=== PATIENT | male | born 1985 | race Two or more races ===

== ENCOUNTER 2017-12-02 17:50 | Emergency (ER) | payer SELFPAY ==
[2017-12-02 18:59] LABS: ADD MAN DIFF? NO
[2017-12-02 19:03] LABS: BASO % 0 % (0-3); EOS % 0 % (0-3); HEMATOCRIT 45.2 % (39.0-53.0); HEMOGLOBIN 15.7 g/dL (13.0-17.5); LYMPH # 0.7 x10^3/uL (1.0-4.8); LYMPH % 6 % (24-48); MEAN CORPUSCULAR HEMOGLOBIN 31 pg (25-35); MEAN CORPUSCULAR HGB CONC 35 g/dL (31-37); MEAN CORPUSCULAR VOLUME 90 fL (79-100); MONO # 0.2 x10^3/uL (0.0-1.1); MONO % 2 % (0-9); NEUT # 10.2 x10^3uL (1.8-7.7); NEUT % 92 % (31-73); PLATELET COUNT 286 x10^3/uL (140-400); RED BLOOD COUNT 5.02 x10^6/uL (4.30-5.70); RED CELL DISTRIBUTION WIDTH 13.3 % (11.5-14.5); WHITE BLOOD COUNT 11.1 x10^3/uL (4.0-11.0)
[2017-12-02] MEDS: IV NORMAL SALINE 1000ML BAG 1,000 ML IV (19:08)
[2017-12-02] MEDS: LIDO:MAALOX 1:1 20 ML SINGLE DOSE. PO (19:09)
[2017-12-02] MEDS: FAMOTIDINE 20 MG/2 ML VIAL IVP (19:09)
[2017-12-02] MEDS: ONDANSETRON PF 4 MG/2 ML VIAL. IV (19:09)
[2017-12-02 19:14] LABS: ANION GAP 12 (6-14); BLOOD UREA NITROGEN 11 mg/dL (8-26); BUN/CREATININE RATIO 14 (6-20); CALCIUM 9.2 mg/dL (8.5-10.1); CARBON DIOXIDE 27 mmol/L (21-32); CHLORIDE 99 mmol/L (98-107); CREATININE 0.8 mg/dL (0.7-1.3); GFR 111.3; GLUCOSE 148 mg/dL (70-99); POTASSIUM 3.9 mmol/L (3.5-5.1); SODIUM 138 mmol/L (136-145)
[2017-12-02 19:20] LABS: ALBUMIN 4.6 g/dL (3.4-5.0); ALBUMIN/GLOBULIN RATIO 1.3 (1.0-1.7); ALK PHOS 55 U/L (46-116); ALT (SGPT) 111 U/L (16-63); AST (SGOT) 41 U/L (15-37); LIPASE 84 U/L (73-393); TOTAL BILIRUBIN 0.6 mg/dL (0.2-1.0); TOTAL PROTEIN 8.2 g/dL (6.4-8.2)
== END 2017-12-02 21:10 | disposition home or self-care (01) ==
LOC: ER 17:50
DX: R10.13 Epigastric pain (principal); R11.2 Nausea with vomiting, unspecified
CPT/HCPCS: 36415; 80053; 83690; 85025; 96361; 96374; 96375; 99284; J2405; J7030; S0028